=== PATIENT | male | born 1960 | race Two or more races ===

== ENCOUNTER 2024-09-30 09:38 | Outpatient (CLI) | payer OTHER | END 2024-09-30 09:44 | disposition home or self-care (01) | LOC: RAD 09:38 | PROVIDERS: ATTEND Orthopaedic Surgery Orthopaedic Surgery of the Spine | DX: M54.51 Vertebrogenic low back pain (principal) ==

== ENCOUNTER 2024-11-07 15:14 | Outpatient (CLI) | payer OTHER | END 2024-11-07 15:15 | disposition home or self-care (01) | LOC: RAD 15:14 | PROVIDERS: ATTEND Internal Medicine Gastroenterology | DX: M18.9 Osteoarthritis of first carpometacarpal joint, unspecified (principal) ==

== ENCOUNTER 2024-11-24 12:44 | Outpatient (CLI) | payer OTHER | END 2024-11-24 12:51 | disposition home or self-care (01) | LOC: TOM 12:44 | DX: R51.9 Headache, unspecified (principal) ==